=== PATIENT | female | born 1985 | race Two or more races ===

== ENCOUNTER 2024-03-08 11:50 | Inpatient (IN) | payer MEDICAID ==
[2024-03-08] VITALS (7 sets, daily range): BP systolic 105–132; BP diastolic 42–74; PULSE 76–94; RESP 14–22; TEMP 97.4–98.9; O2SAT 97–98
[~2024-03-08] VITALS: Ht 160 cm; Wt 102.1 kg
[2024-03-08 13:44] LABS: Hematocrit 19.5 % (36.0-46.0)
[2024-03-08 13:47] LABS: Mean Corpuscular Hemoglobin 16.5 pg (28.0-32.0); Mean Corpuscular Hgb Conc. 26.6 g/dL (32.0-36.0); Mean Corpuscular Volume 62.1 fL (80.0-100.0); Red Blood Cells 3.14 10^6/uL (4.0-5.20); White Blood Cell 6.1 10^3/uL (4.4-10.8)
[2024-03-08 13:52] LABS: Red Cell Distribution Width 22.9 % (11.8-14.3)
[2024-03-08 13:59] LABS: Hemoglobin 5.2 g/dL (12.2-16.2)
[2024-03-08 14:00] LABS: Band Neutrophils % (manual) 0; Blast Cells 0; Metamyelocytes % 0; Myelocytes % 0; Promyelocytes % 0; Reactive Lymphocytes 0
[2024-03-08 14:02] LABS: Alanine Aminotransferase 13 U/L (7-40); Albumin 4.3 g/dL (3.2-4.8); Alkaline Phosphatase 143 U/L (46-116); Anion Gap 4 (5-15); Aspartate Aminotransferase 10 U/L (13-40); BUN/Creatinine Ratio 19.2 (10.0-20.0); Bilirubin, Total 0.4 mg/dL (0.2-1.0); Blood Urea Nitrogen 10 mg/dL (9-23); Calcium 9.3 mg/dL (8.5-10.1); Carbon Dioxide 25 mmol/L (20-30); Chloride 112 mmol/L (98-107); Glucose 78 mg/dL (74-106); Potassium 4.2 mmol/L (3.5-5.1); Sodium 141 mmol/L (136-145); Total Protein 7.1 g/dL (5.7-8.2)
[2024-03-08] MEDS: SODIUM CHLORIDE 0.9% 1,000 ML IV SCH (14:30)
[2024-03-08] MEDS ORDERED: SEMA2INJ3 SC (14:37)
[2024-03-08] MEDS ORDERED: LAMO100T44 PO (14:37)
[2024-03-08] MEDS ORDERED: FLUO10TA18 PO (14:37)
[2024-03-08] MEDS ORDERED: FERR325T20 PO (14:37)
[2024-03-08 14:45] LABS: Urine Bacteria FEW /hpf (None Seen); Urine Blood Negative /uL (Negative); Urine Clarity Clear (Clear); Urine Color Colorless (Yellow); Urine Protein, UAD Negative (Negative); Urine Specific Gravity 1.004 (1.001-1.035); Urine Urobilinogen Normal (Negative); Urine WBC 1 /hpf (0 - 5); Urine pH 5.5 (5.0-9.0)
[2024-03-08] MEDS: FERROUS SULFATE 325mg EC TAB PO ONE (14:45)
[2024-03-08 14:55] LABS: Basophils % (manual) 1 (0.0-2.0); Eosinophils % (manual) 3 (0-7); Lymphocytes % (manual) 32 (10.0-50.0); Monocytes % (manual) 5 (0-12)
[2024-03-08 14:56] LABS: Anisocytosis Slight; Hypochromia Marked; Platelet Estimate Increased
[2024-03-08 15:39] LABS: Triglycerides 51 mg/dL (< 150)
[2024-03-08 15:40] LABS: LDL Cholesterol 63 mg/dL (< 100)
[2024-03-08 15:41] LABS: HDL Cholesterol 42 mg/dL (40-59)
[2024-03-08 15:42] LABS: Cholesterol 120 mg/dL (< 200)
[2024-03-08] MEDS: ALPRAZolam 0.5 MG TAB PO ONE (16:12)
[2024-03-08 16:48] LABS: Folate (Folic Acid) 21.07 ng/mL (>5.38)
[2024-03-08] MEDS: FERROUS SULFATE 325mg EC TAB PO SCH (18:00)
[2024-03-08] MEDS: TEMAZEPAM 15 MG CAP PO ONE (21:45)
[2024-03-09 00:42] LABS: Hematocrit 27.2 % (36.0-46.0); Hemoglobin 7.7 g/dL (12.2-16.2)
[2024-03-09 05:41] VITALS: BP 111/69; PULSE 78; RESP 19; TEMP 97.5; O2SAT 97
[2024-03-09 06:32] LABS: Hematocrit 24.4 % (36.0-46.0)
[2024-03-09 06:50] LABS: Alanine Aminotransferase 14 U/L (7-40); Albumin 3.7 g/dL (3.2-4.8); Alkaline Phosphatase 127 U/L (46-116); Anion Gap 4 (5-15); BUN/Creatinine Ratio 23.2 (10.0-20.0); Blood Urea Nitrogen 13 mg/dL (9-23); Calcium 8.7 mg/dL (8.5-10.1); Carbon Dioxide 25 mmol/L (20-30); Chloride 111 mmol/L (98-107); Glucose 80 mg/dL (74-106); Sodium 140 mmol/L (136-145)
[2024-03-09 06:51] LABS: Bilirubin, Total 0.8 mg/dL (0.2-1.0); Total Protein 6.1 g/dL (5.7-8.2)
[2024-03-09 07:38] LABS: Aspartate Aminotransferase 11 U/L (13-40)
[2024-03-09] MEDS: ACETAMINOPHEN 325 MG TAB PO PRN (08:44)
[2024-03-09] MEDS: lamoTRIgine 100 MG TAB PO SCH (08:45)
[2024-03-09] MEDS: FLUoxetine HCL 10 MG CAP PO SCH (08:45)
[2024-03-09 11:15] VITALS: BP 113/58; PULSE 68; RESP 16; TEMP 97.7
[2024-03-09 11:40] VITALS: BP 119/61; PULSE 69; RESP 16; TEMP 97.4
[2024-03-09] MEDS ORDERED: IRON SUCROSE COMPLEX 100 ML IV SCH (12:00)
[2024-03-09 13:45] VITALS: BP 105/54; PULSE 83; RESP 16; TEMP 97.2
[2024-03-09 15:46] LABS: Hematocrit 30.2 % (36.0-46.0)
[2024-03-09] MEDS: SODIUM FERR GLUC 62.5MG/5ML 125 MG in SODIUM CHL 0.9% 100 ML IV SCH (16:04)
[2024-03-09 19:17] LABS: Hemoglobin 8.8 g/dL (12.2-16.2)
[2024-03-09 19:31] LABS: INR 1.03 (0.9-1.15); Prothrombin Time 10.9 sec (9.3-11.8)
[2024-03-09 21:00] VITALS: BP 117/71; PULSE 58; RESP 20; TEMP 97.8; O2SAT 91
[2024-03-09] MEDS: MELATONIN 5 MG TAB PO ONE (23:37)
[2024-03-10] VITALS (7 sets, daily range): BP systolic 104–117; BP diastolic 57–80; PULSE 64–86; RESP 17–20; TEMP 97–98.3; O2SAT 95–98
[2024-03-10] MEDS ORDERED: OMNIPAQUE 12mg/ml 500ml ORAL SOLUTION PO ONE (07:15)
[2024-03-10] MEDS ORDERED: IOHEXOL 300 MG/ML 100ML BOTTLE IJ ONE (10:00)
[2024-03-10] MEDS ORDERED: ONDANSETRON HCL 4 MG/2 ML VIAL ONE (11:13)
[2024-03-10] MEDS ORDERED: PROPOFOL 10 MG/ML 20 ML IV ONE (11:13)
[2024-03-10] MEDS ORDERED: fentaNYL CITRATE 100 MCG/2 ML VL ONE (11:13)
[2024-03-10] MEDS ORDERED: GLYCOPYRROLATE 0.2 MG/ML 1ML VIAL ONE (11:13)
[2024-03-10] MEDS ORDERED: MIDAZOLAM HCL 2MG/2ML 2ml VIAL (1mg/ml) ONE (11:13)
[2024-03-10] MEDS ORDERED: HYDROmorphone HCL 2 MG/ML VL/or syr IV PRN (11:45)
[2024-03-10] MEDS ORDERED: LORazepam 2MG/ML-1ML VIAL ONE (13:57)
[2024-03-10] MEDS: LORazepam 2MG/ML-1ML VIAL IV ONE (13:58)
[2024-03-10] MEDS: MELATONIN 5 MG TAB PO SCH (21:37)
[2024-03-11 05:00] VITALS: BP 115/67; PULSE 71; RESP 20; TEMP 97.5; O2SAT 98
[2024-03-11 09:02] VITALS: BP 98/50; PULSE 83; RESP 16; TEMP 97.8; O2SAT 93
[2024-03-11] MEDS ORDERED: FERR-7 PO (11:19)
[2024-03-11] MEDS ORDERED: PANT40T PO (11:20)
[2024-03-11 11:55] LABS: Basophils # (auto) 0.1 10 ^3/uL (0-0.2); Eosinophils # (auto) 0.1 10 ^3/uL (0-0.8); Lymphocytes # (auto) 1.6 10 ^3/uL (0.4-5.4); Red Cell Distribution Width 29.6 % (11.8-14.3)
[2024-03-11 11:57] LABS: Basophils % (auto) 0.8 % (0.0-2.0); Eosinophils % (auto) 1.3 % (0.0-7.0); Lymphocytes % (auto) 20.6 % (10.0-50.0); Mean Corpuscular Hemoglobin 20.6 pg (28.0-32.0); Mean Corpuscular Hgb Conc. 29.1 g/dL (32.0-36.0); Monocytes # (auto) 0.4 10 ^3/uL (0-1.3); Monocytes % (auto) 5.4 % (0.0-12.0); Neutrophils # (auto) 5.5 10 ^3/uL (1.6-8.6); Neutrophils % (auto) 71.9 % (37.0-80.0); Nucleated Red Blood Cells % 0.1 %; Red Blood Cells 4.37 10^6/uL (4.0-5.20); White Blood Cell 7.7 10^3/uL (4.4-10.8)
[2024-03-11 12:15] LABS: Anisocytosis Slight; Hypochromia Marked; Platelet Estimate Adequate
[2024-03-11 13:00] VITALS: BP 109/40; PULSE 89; RESP 17; TEMP 97.6; O2SAT 98
[2024-03-11 14:02] VITALS: BP 109/62; PULSE 89; RESP 17; TEMP 97.6; O2SAT 98
== END 2024-03-11 14:50 | disposition home or self-care (01) | DRG 663 ==
LOC: ER 11:50 → OVERFLOW 14:19 → EAST 14:34
PROVIDERS: ADMIT Nurse Practitioner Family; ATTEND Family Medicine
PROC: 30233N1 Transfusion of Nonautologous Red Blood Cells into Peripheral Vein, Percutaneous Approach (ICD-10-PCS; 2024-03-08)
PROC: 05H933Z Insertion of Infusion Device into Right Brachial Vein, Percutaneous Approach (ICD-10-PCS; 2024-03-08)
PROC: B54MZZA Ultrasonography of Right Upper Extremity Veins, Guidance (ICD-10-PCS; 2024-03-08)
PROC: 0DB68ZX Excision of Stomach, Via Natural or Artificial Opening Endoscopic, Diagnostic (ICD-10-PCS; principal; 2024-03-10 11:18)
DX: D50.9 Iron deficiency anemia, unspecified (principal); D70.9 Neutropenia, unspecified; K20.90 Esophagitis, unspecified without bleeding; K90.9 Intestinal malabsorption, unspecified; E66.01 Morbid (severe) obesity due to excess calories; K29.70 Gastritis, unspecified, without bleeding; Z98.84 Bariatric surgery status; Z83.3 Family history of diabetes mellitus; Z82.49 Family history of ischemic heart disease and other diseases of the circulatory system; Z68.39 Body mass index [BMI] 39.0-39.9, adult
CPT/HCPCS: 36415; 74176; 80053; 80061; 81001; 82607; 82746; 83540; 83550; 84443; 84702; 85007; 85014; 85018; 85025; 85027; 85610; 86850; 86900; 86901; 86920; G0378; J2250; J2405; J2704